=== PATIENT | male | born 1990 | race Caucasian/White ===

== ENCOUNTER 2022-08-26 21:08 | Emergency (ER) | payer SELFPAY ==
[2022-08-26] MEDS ORDERED: Bacitracin 1 PK ONE (22:03)
[2022-08-26] MEDS ORDERED: Ibuprofen 800 MG TAB ONE (22:15)
[2022-08-26] MEDS ORDERED: HYDROcodone/Acetaminophen 5/325 mg Tablet ONE (22:15)
== END 2022-08-26 22:20 | disposition home or self-care (01) ==
LOC: BURERS 21:08
DX: S62.626B Displaced fracture of middle phalanx of right little finger, initial encounter for open fracture (principal); F17.210 Nicotine dependence, cigarettes, uncomplicated; W23.0XXA Caught, crushed, jammed, or pinched between moving objects, initial encounter